=== PATIENT | female | born 1990 ===

== ENCOUNTER 2021-04-05 11:45 | Emergency (ER) | payer OTHER, SELFPAY ==
[2021-04-05 13:26] VITALS: BP 111/84; PULSE 84; RESP 18; TEMP 36.8; O2SAT 99; BMI 34.4
[2021-04-05 13:53] LABS: MANUAL DIFF FLAG NO
[2021-04-05 13:57] LABS: Basophils Percent Auto 0.6 % (0-2); Eosinophils Absolute Auto 0.1 X10*3/uL (0.0-0.4); Eosinophils Percent Auto 2.9 % (0-4); Hematocrit 42.2 % (37.0-47.0); Hemoglobin 13.9 g/dl (12.0-16.0); Imm Gran Abs Auto 0.01 X10*3/uL (0.00-0.03); Imm Gran Pct Auto 0.2 % (0.0-0.4); Lymphocytes Absolute Auto 1.9 X10*3/uL (1.2-4.9); Lymphocytes Percent Auto 40.2 % (20-40); Mean Corpuscular HGB Conc 32.9 g/dl (31.0-35.0); Mean Corpuscular Hemoglobin 29.5 pg (27.0-33.0); Mean Corpuscular Volume 89.6 fL (80.0-98.0); Mean Platelet Volume 10.3 fL (9.4-12.3); Monocytes Absolute Auto 0.4 X10*3/uL (0.1-1.2); Monocytes Percent Auto 8.9 % (2-11); Neutrophils Absolute Auto 2.3 x10*3/uL (2.0-8.3); Neutrophils Percent Auto 47.2 % (45-73); Platelet Count 309 X10*3/uL (160-400); Red Blood Count 4.71 X10*6/uL (4.20-5.50); Red Cell Distribution Width 11.8 % (11.0-16.0); White Blood Count 4.8 X10*3/uL (4.8-10.8)
[2021-04-05 14:16] LABS: Alanine Aminotransferase 17 U/L (0-31); Albumin Level 4.4 g/dL (3.5-5.0); Alkaline Phosphatase 107 U/L (39-117); Anion Gap 12 (12-20); Aspartate Amino Transferase 14 U/L (5-31); Bilirubin Direct 0.2 mg/dL (0.0-0.5); Bilirubin Total 0.3 mg/dL (0.0-1.0); Blood Urea Nitrogen 8 mg/dL (9-16); Calcium 9.8 mg/dL (8.4-10.2); Carbon Dioxide 26 mmol/L (22-29); Chloride 104 mmol/L (96-108); Creatinine Clr Calc Pharmacy 135.5; Estimated Glomerular Filt Rate > 60; Glucose Random 113 mg/dL (60-115); Lipase 51 U/L (8-78); Potassium 4.3 mmol/L (3.3-5.1); Sodium 138 mmol/L (135-145); Total Protein 7.9 g/dL (6.5-8.0)
[2021-04-05 17:02] LABS: Appearance Urine HAZY; Color Urine YELLOW; Glucose Urine UA NEG (NEG); Leukocyte Esterase Urine TRACE (NEG); Nitrite Urine NEG (NEG); UACC Culture Trigger YES; Urine Blood NEG (NEG); Urine Ketones NEG (NEG); Urine Protein NEG (NEG-TRACE)
[2021-04-05 19:04] LABS: Bacteria Urine TRACE /LPF; Mucus Urine TRACE /LPF; RBC Urine 0 /HPF (0); Squamous Epithelial Cell Urine 1+ /LPF
--- NOTE | 2021-04-05 20:20 | ED_ITS ---
HPI - GI Bleed General Chief complaint: GI Bleed Stated complaint: rectal bleed Time Seen by Provider: 04/05/21 20:10 History of Present Illness HPI Narrative: Patient is 30 years old presents today with having brown stool. Also having hemorrhoids. Noticed some blood in his stool. Presented to the emergency department. No fever no chills no cough no congestion no chest pain or diaphoresis. Patient is from home. No focal weakness. No diaphoresis. All system reviewed otherwise negative no history of GI bleed in the past. Positive history of hemorrhoids. Related Data Allergies Allergy/AdvReac Type Severity Reaction Status Date / Time No Known Allergies Allergy Verified 04/05/21 13:25 [No Known Allergies*] Review of Systems Review of Systems: Positive hemorrhoid positive brown stool with blood Yes all other systems are reviewed and are negative PMFSH Past Medical History Attestation statement: The following information was validated with the patient. Medical History Asthma Hemorrhoids Social History Social History Patient : No Physical Exam Vital Signs: Vital Signs: Last Vital Signs Temp 98.2 F 04/05/21 13:26 Pulse 84 04/05/21 13:26 Resp 18 04/05/21 13:26 BP 111/84 04/05/21 13:26 Pulse Ox 99 04/05/21 13:26 BMI result Body Mass Index 34.4 Appearance: Alert. Oriented X3. No acute distress. Eyes: Pupils equal, round and reactive to light. ENT: Pharynx normal. Neck: Normal inspection. Neck supple. No lymph nodes noted. No crepitus CVS: Normal heart rate and rhythm. Pulses normal. Normal S1 and S2 Respiratory: No respiratory distress. Breath sounds normal. No Wheezing. No rales Abdomen: Soft and nontender. No rigidity. No distention. good BS x4 rectal exam done with Keshav present. Positive hemorrhoids. the stools grossly brown. Skin: Skin warm and dry. Normal skin color. Normal skin turgor. Extremities: No lower extremity edema. Neurovascular intact to all extremities. No Lacerations. No Rash Neuro: Oriented X 3. No motor deficit. No sensory deficit. Moving all extermities. No slurred speech MDM - GI Bleed [facility] Narrative Medical decision making narrative: Patient well appearing no distress. Hemoglobin is 13.9. Likely hemorrhoidal bleed. Will discharge patient home. In stable condition. Lab Data Result diagrams: 04/05/21 13:50 04/05/21 13:50 Labs: Lab Results 04/05/21 04/05/21 04/05/21 Range/Units 13:50 13:50 16:35 WBC 4.8 (4.8-10.8) X10*3/uL RBC 4.71 (4.20-5.50) X10*6/uL Hgb 13.9 (12.0-16.0) g/dl Hct 42.2 (37.0-47.0) % MCV 89.6 (80.0-98.0) fL MCH 29.5 (27.0-33.0) pg MCHC 32.9 (31.0-35.0) g/dl RDW 11.8 (11.0-16.0) % Plt Count 309 (160-400) X10*3/uL MPV 10.3 (9.4-12.3) fL Immature Gran % (Auto) 0.2 (0.0-0.4) % Neut % (Auto) 47.2 (45-73) % Lymph % (Auto) 40.2 H (20-40) % Weber % (Auto) 8.9 (2-11) % Eos % (Auto) 2.9 (0-4) % Baso % (Auto) 0.6 (0-2) % Lymph # (Auto) 1.9 (1.2-4.9) X10*3/uL [place] # (Auto) 0.4 (0.1-1.2) X10*3/uL Eos # (Auto) 0.1 (0.0-0.4) X10*3/uL Baso # (Auto) 0.0 (0.0-0.2) X10*3/uL Abs Immat Gran (auto) 0.01 (0.00-0.03) X10*3/uL Absolute Neuts (auto) 2.3 (2.0-8.3) x10*3/uL Absolute Nucleated RBC 0.000 (0.0-0.012) X10*3/uL Nucleated RBC % (auto) 0.0 (0.0-0.2) /100WBC Sodium 138 (135-145) mmol/L Potassium 4.3 (3.3-5.1) mmol/L Chloride 104 (96-108) mmol/L Carbon Dioxide 26 (22-29) mmol/L Anion Gap 12 (12-20) BUN 8 L (9-16) mg/dL Creatinine 0.75 (0.5-1.4) mg/dL Estim Creat Clear Calc 135.5 Estimated GFR > 60 Random Glucose 113 (60-115) mg/dL Calcium 9.8 (8.4-10.2) mg/dL Total Bilirubin 0.3 (0.0-1.0) mg/dL Direct Bilirubin 0.2 (0.0-0.5) mg/dL AST 14 (5-31) U/L ALT 17 (0-31) U/L Alkaline Phosphatase 107 (39-117) U/L Total Protein 7.9 (6.5-8.0) g/dL Albumin 4.4 (3.5-5.0) g/dL Lipase 51 (8-78) U/L Urine Color YELLOW Urine Appearance HAZY Urine pH 6.0 (5.0-8.0) Ur Specific [place] 1.020 (1.005-1.025) Urine Protein NEG (NEG-TRACE) MG/DL Urine Glucose (UA) NEG (NEG) MG/DL Urine Ketones NEG (NEG) MG/DL Urine Blood NEG (NEG) Urine Nitrite NEG (NEG) Ur Leukocyte Esterase TRACE H (NEG) Urine RBC 0 (0) /HPF Urine WBC 1-4 (0-4) /HPF Ur Squamous Epith Cells 1+ /LPF Urine Bacteria TRACE /LPF Urine Mucus TRACE /LPF Discharge Plan Discharge Clinical Impression: Hemorrhoids Patient Disposition: Home, Self-Care Instructions: Hemorrhoids (ED) Referrals: Andres Andre MD [Physician] - 2 days
[2021-04-05 20:33] VITALS: BP 133/84; PULSE 105; RESP 16; O2SAT 98
== END 2021-04-05 20:38 | disposition home or self-care (01) ==
LOC: HO.ED 20:26
PROVIDERS: Emergency Provider Emergency Medicine Emergency Medical Services
DX: K64.9 Unspecified hemorrhoids (principal); J45.909 Unspecified asthma, uncomplicated
CPT/HCPCS: 36415; 80048; 80076; 81001; 81003; 83690; 85025; 87086; 99283; 99284

== ENCOUNTER 2022-06-07 08:30 | Emergency (ER) | payer OTHER, SELFPAY ==
[2022-06-07 08:39] VITALS: BP 117/91; PULSE 94; RESP 20; TEMP 36.3; O2SAT 98; BMI 35.9
[2022-06-07 09:08] LABS: COVID-19 Test Negative (Negative); IDNOW Serial# 6674DD1D
[2022-06-07 09:09] LABS: Strep A Nucleic Acid Negative (Negative)
[2022-06-07 09:18] LABS: IDNOW Serial# 08D9AD1C; Influenza A Negative (Negative); Influenza B2 Negative (Negative)
--- NOTE | 2022-06-07 09:57 | ED_ITS ---
HPI - URI/Sore Throat General Chief Complaint: Upper Respiratory Symptoms Stated Complaint: N/V/D/Sore throat Time Seen by Provider: 06/07/22 09:50 Source: patient Mode of arrival: ambulatory Limitations: no limitations History of Present Illness HPI Narrative: 31 yo female presenting with 4 days of sore throat, body aches, headaches, stuffy nose and not feeling well. She also reports feeling nauseated and vomited twice. She had a few episodes of nonbloody diarrhea yesterday as well. She reports her 2 young children had similar illness last week but got better after a couple days. She denies any shortness of breath, chest pain, abdominal pain. MD elicited complaint: cough, sore throat and nasal congestion Onset (ago): day(s) (4) Consistency: constant Severity: moderate Description of mucous: clear and watery Able to tolerate fluids by mouth: Yes Exacerbating factors: swallowing Relieving factors: nothing Context: sick contacts Associated symptoms: chills, myalgias, headache, rhinorrhea, nasal congestion, sore throat, cough, nausea, vomiting and diarrhea Treatments prior to arrival: none Related Data Previous Rx's Medication Instructions Recorded benzonatate 100 mg capsule 100 mg PO TID PRN cough #30 caps 06/07/22 fluticasone propionate 50 2 spray intranasal DAILY #16 grams 06/07/22 mcg/actuation nasal spray,suspension (24 Hour Allergy Relief) ondansetron 4 mg disintegrating 4 mg PO Q8H PRN nausea and 06/07/22 tablet vomiting #10 tabs Allergies Allergy/AdvReac Type Severity Reaction Status Date / Time No Known Allergies Allergy Verified 06/07/22 08:42 [No Known Allergies*] Review of Systems Review of Systems: Yes all other systems are reviewed and are negative [facility] Past Medical History Medical History Asthma Hemorrhoids Social History Social History Advance Directives: No Advance Directives Information Provided: No Physical Exam Vital Signs: Vital Signs: Last Vital Signs Temp 97.4 F 06/07/22 08:39 Pulse 94 06/07/22 08:39 Resp 20 06/07/22 08:39 BP 117/91 H 06/07/22 08:39 Pulse Ox 98 06/07/22 08:39 O2 Del Method 06/07/22 08:39 BMI result Body Mass Index 35.9 Appearance: Alert. Oriented X3. No acute distress. Eyes: Pupils equal, round and reactive to light. ENT: Pharynx normal. Normal tonsils and uvula. Hoarse voice. Normal TMs bilaterally. Neck: Normal inspection. Neck supple. No LAD CVS: Normal heart rate and rhythm. Pulses normal. Respiratory: No respiratory distress. Breath sounds normal. Abdomen: Soft and nontender. +BS x4 Skin: Skin warm and dry. Normal skin color. Normal skin turgor. No rashes. Extremities: No lower extremity edema. Neuro: Oriented X 3. Nonfocal, steady gait. Course Course Course Narrative: 31 yo female presenting with 4 days of URI symptoms along with nausea, vomiting and few episodes of diarrhea. Two young children with similar symptoms last week. Exam is benign. VSS. Abd is soft. Strep, COVID, Flu are all negative. Most likely viral illness. Discussed supportive care and return precautions. Stable for d/c home. Will send Rx for anti-tussive, anti-emetic and decongestant. Medical Decision Making Differential Diagnosis Differential Diagnoses: The differential diagnosis associated with the presentation includes acute viral syndrome, COVID, Flu, RSV, gastroenteritis, Strep throat, less likely sinus infection, appendicitis, cholecystitis, or intraabdominal infection Lab Data MDM Lab Attestation statement: I reviewed the patient's lab results. viral swabs and strep are negative Labs: Lab Results 06/07/22 06/07/22 06/07/22 Range/Units 08:44 08:44 08:44 COVID-19 (RHODA) Negative (Negative) COVID-19 Clin Com See Note Influenza Type A (AYLIN) Negative (Negative) Influenza Type B (AYLIN) Negative (Negative) Influenza A & B Note See Note S. pyogenes GrpA AYLIN Negative (Negative) External Record Review External record reviewed: Outpatient record and Prior outpatient labs Tests considered The following testing was considered but not selected: labs considered but not performed - no signs of dehydration or acute bacterial infection Prescription Management I considered prescription management with: Other (anti-tussive, anti-emetic) Critical Care Time Critical Care Time Critical Care Time: No Discharge Plan Discharge Clinical Impression: Viral infection Patient Disposition: Home, Self-Care Instructions: Viral Syndrome (ED) Additional Instructions: You tested negative for Strep throat, COVID, and Flu. Your symptoms are most likely due to another viral illness. Treatment is rest and supportive care - take over the counter cold/flu medications as needed for your symptoms Rest and drink plenty of fluids Take the prescribed medications as directed Follow up with a primary care doctor as needed. Prescriptions: New ondansetron 4 mg tablet,disintegrating 4 mg PO Q8H PRN (Reason: nausea and vomiting) Qty: 10 0RF fluticasone propionate [24 Hour Allergy Relief] 50 mcg/actuation spray,meredith pension 2 spray intranasal DAILY Qty: 16 0RF Rx Instructions: administer into each nostril benzonatate 100 mg capsule 100 mg PO TID PRN (Reason: cough) Qty: 30 0RF
== END 2022-06-07 10:30 | disposition home or self-care (01) ==
PROVIDERS: Emergency Provider Emergency Medicine
DX: M79.10 Myalgia, unspecified site (principal); R51.9 Headache, unspecified; R05.9 Cough, unspecified; Z20.822 Contact with and (suspected) exposure to COVID-19; Z20.828 Contact with and (suspected) exposure to other viral communicable diseases; Z79.899 Other long term (current) drug therapy
CPT/HCPCS: 87502; 87635; 87651; 99282; 99283

== ENCOUNTER 2022-12-30 19:27 | Emergency (ER) | payer OTHER, SELFPAY ==
--- NOTE | ~2022-12-30 | CT_ITS ---
EXAMINATION: CT ANGIOGRAM OF THE CHEST WITH AND WITHOUT CONTRAST (CT PULMONARY ANGIOGRAM FOR PE) CLINICAL INFORMATION: Reason for Exam chest pain elevated ddimer COMPARISON: None available. TECHNIQUE: Prior to contrast administration, noncontrast localization images were obtained. Subsequently, multidetector volumetric imaging was performed from the thoracic inlet to below the diaphragms following the administration of 70 mL Omnipaque 350 intravenous contrast. No contrast reaction reported Sagittal, coronal, and MIP oblique sagittal reformatted images were obtained on the CT workstation, uploaded to PACS, and reviewed. This CT examination was performed using dose optimization techniques as appropriate, variously including the following: *Automated exposure control *Adjustment of mA and/or kV according to patient size (this includes techniques or standardized protocols for targeted exams where dose is matched to indication/reason for exam; i.e. extremities or head) *Use of iterative reconstruction technique Total exam dose-length product 307 mGy-cm FINDINGS: QUALITY OF STUDY/CONTRAST BOLUS: Limited due to a late imaging of the contrast bolus. Systemic arterial contrast is noted throughout the chest and there is diminished pulmonary arterial contrast material, limiting assessment of the lobar/proximal segmental levels. PULMONARY ARTERIES: No lobar or appreciable proximal segmental pulmonary emboli. Sensitivity for smaller distal pulmonary emboli is limited. THORACIC AORTA: No aneurysm. LUNG: No focal consolidation, nodules or masses. Mild dependent atelectasis. PLEURA: No pleural effusion or pneumothorax. MEDIASTINUM: Normal heart size. No pericardial effusion. No hilar or mediastinal lymphadenopathy. No evidence of septal bowing or right heart strain. CORONARY ARTERY CALCIFICATION: None visualized on this study. CHEST WALL/AXILLA: No axillary or internal mammary lymphadenopathy. OSSEOUS STRUCTURES: No acute or suspicious osseous abnormality. UPPER ABDOMEN: Unremarkable. No reflux of contrast into the hepatic veins to suggest elevated right heart pressures. CT/CT angio chest PE protocol IMPRESSION: No acute pulmonary findings. No lobar or proximal segmental pulmonary emboli are identified. Sensitivity for smaller distal pulmonary emboli is limited. VTE: indeterminate.
--- NOTE | ~2022-12-30 | XR_ITS ---
EXAMINATION: XR CHEST CLINICAL INFORMATION: Pain COMPARISON: None available. TECHNIQUE: Frontal view of the chest was obtained. FINDINGS: The cardiomediastinal silhouette is normal. There is no focal lung consolidation or pleural effusion. The bony structures and soft tissues are unremarkable. XR/XR chest 1V IMPRESSION: No active cardiopulmonary disease.
--- NOTE | ~2022-12-30 | CT_ITS ---
EXAMINATION: CT head/brain wo IV con CLINICAL INFORMATION: Reason for Exam headaches COMPARISON: None. TECHNIQUE: Contiguous axial imaging was performed from the skull base to vertex without intravenous contrast. Sagittal and coronal reformatted images were obtained. This CT examination was performed using dose optimization techniques as appropriate, variously including the following: * Automated exposure control * Adjustment of mA and/or kV according to patient size (this includes techniques or standardized protocols for targeted exams where dose is matched to indication/reason for exam; i.e. extremities or head) Use of iterative reconstruction technique DLP: 688.06 mGy-cm FINDINGS: Motion degraded examination with evaluation of the intracranial contents most limited along the skull base No acute osseous or soft tissue abnormality. The mastoid air cells and visualized portions of the paranasal sinuses are well aerated. There is some hyperdensity of the intracranial vasculature related to recent IV contrast administration which limits sensitivity for subarachnoid hemorrhage. There is no evidence of acute intracranial hemorrhage or territorial infarction. No abnormal mass effect or midline shift is seen. Mancuso to white matter differentiation is well preserved. No extra-axial fluid collections are identified. No hydrocephalus. No significant volume loss. There is no abnormal attenuation within the brain parenchyma. CT/CT head/brain wo IV con IMPRESSION: Within the limitations of motion artifact, no evidence of acute intracranial abnormality including hemorrhage, mass effect, hydrocephalus, or acute territorial edematous infarction.
--- NOTE | 2022-12-30 19:29 | ECG_ITS ---
Test Reason : CX PAIN Blood Pressure : / mmHG Vent. Rate : 126 BPM Atrial Rate : 126 BPM P-R Int : 126 ms QRS Dur : 078 ms QT Int : 310 ms P-R-T Axes : 065 036 035 degrees QTc Int : 448 ms Sinus tachycardia Otherwise normal ECG No previous ECGs available Referred By: Dex Sauer Electronically Signed By:KIRK MUELLER
[2022-12-30 19:43] VITALS: BP 138/84; PULSE 128; RESP 18; TEMP 38.5; O2SAT 95; BMI 36.0
--- NOTE | 2022-12-30 19:48 | ED.CHESTPAIN ---
HPI - Chest Pain General Chief Complaint: Chest Pain Stated Complaint: chest pain Time Seen by Provider: 12/30/22 22:41 Source: patient Mode of arrival: ambulatory Limitations: no limitations History of Present Illness HPI narrative: 32 yo female no sig PMH uses IUD went [facility]. Her had a mild illness the next day with diarrhea but resolved. She developed body aches, fevers, L sided chest pain and diarrhea yesterday. She denies travel, known sick contacts, this has never happened before. MD complaint: chest pain Onset (ago): day(s) (1) Timing of current episode: constant Prior episodes: No Onset: during rest Pain location: left chest Pain radiation: none Severity: moderate Quality: sharp Relieving factors: nothing Exacerbating factors: inspiration Context: recent illness Associated symptoms: nausea, dyspnea, fever and cough Treatment prior to arrival: none Related Data Previous Rx's Medication Instructions Recorded benzonatate 100 mg capsule 100 mg PO TID PRN cough #30 caps 06/07/22 fluticasone propionate 50 2 spray intranasal DAILY #16 grams 06/07/22 mcg/actuation nasal spray,suspension (24 Hour Allergy Relief) ondansetron 4 mg disintegrating 4 mg PO Q8H PRN nausea and 06/07/22 tablet vomiting #10 tabs ondansetron 4 mg disintegrating 4 mg PO Q8H PRN nausea and 12/31/22 tablet vomiting #20 tabs Allergies Allergy/AdvReac Type Severity Reaction Status Date / Time No Known Allergies Allergy Verified 06/07/22 08:42 [No Known Allergies*] Review of Systems Review of Systems: Constitutional : No Weight loss, pos Fever, pos Chills ENT/Mouth : No sore throat, No Rhinorrhea Eyes: No Eye Pain, No Swelling Cardiovascular : pos Chest Pain, noSOB, no Dyspnea on Exertion, No Orthopnea, No Edema, No Palpitations Respiratory : No Cough, No Sputum Gastrointestinal : pos Nausea, No Vomiting, pos Diarrhea, No abdominal Pain, No Hematochezia, No Melena Genitourinary : No Dysuria, No Urinary Frequency Musculoskeletal : No joint pain, pos Myalgias, No Joint Swelling Skin : No Skin Lesions, No rash Neuro : No Weakness, No Numbness, No Dizziness, No Headache Psych : No Anxiety/Panic, No Depression All other systems reviewed and are negative [facility] Past Medical History Attestation statement: The following information was validated with the patient. Medical History Hemorrhoids Asthma Social History Social History Alcohol intake: current Alcohol intake frequency: holidays/special occasions only Smoked in Last 30 Days: No Use of substances other than those prescribed or required for medical reasons: No Advance Directives: No Advance Directives Information Provided: No Physical Exam Vital Signs: Vital Signs: Last Vital Signs Temp 98.4 F 12/31/22 00:42 Pulse 91 12/31/22 00:42 Resp 16 12/31/22 00:42 BP 112/75 12/31/22 00:42 Pulse Ox 95 12/31/22 00:42 O2 Del Method Room Air 12/31/22 00:42 BMI result Body Mass Index 36.0 Appearance: Alert. Oriented X3. No acute distress. Eyes: Pupils equal, round and reactive to light. ENT: Pharynx normal. Neck: Normal inspection. Neck supple. CVS: tachycardic heart rate and rhythm. Pulses normal. Respiratory: No respiratory distress. Breath sounds normal. Abdomen: Soft and nontender. Skin: Skin warm and dry. Normal skin color. Normal skin turgor. Extremities: No lower extremity edema. No calf ttp Neuro: Oriented X 3. No motor deficit. No sensory deficit. Course Course Course Narrative: RME- 32-year-old female presents for evaluation of headache and chest pain. She is found to have a fever. Will start with a COVID swab. EKG was nonischemic. Consider further testing if COVID negative. She was medicated with ibuprofen, Reevaluation(s) Reevaluation #1: VS improved not toxic states her L hand feels weird but she has no neck pain other than trapezius pain, no mosquito or tick bites, her NIH is 0 at this time no stroke deficits i suspect her IV is making it hard for her hand to work. stroke seems unlikely. Reevaluation #2: given numbness and weird complaints though NIH 0 I will monitor her for a little bit and obtain CT head to rule out any pathology or frontal tumor signed out to Dr. Mena Medications Administered Discontinued Medications Generic Name Dose Route Start Last Admin Trade Name Freq PRN Reason Stop Dose Admin Acetaminophen 975 mg 12/30/22 22:46 12/30/22 23:08 Acetaminophen 325 Mg Tablet PO 12/30/22 22:47 975 mg ONCE ONE Administration Sodium Chloride 1,000 mls @ 999 mls/hr 12/30/22 23:00 12/30/22 23:17 Ns IV 12/31/22 00:00 999 mls/hr .Q1H1M RO Administration Ibuprofen 800 mg 12/30/22 19:47 12/30/22 20:35 Ibuprofen 800 Mg Tablet PO 12/30/22 19:48 800 mg ONCE ONE Administration Iohexol 70 ml 12/31/22 00:22 12/31/22 00:23 Iohexol 350 Mg/Ml 100 Ml Infus..Btl IV 12/31/22 00:23 70 ml ONCE ONE Administration Ondansetron HCl 4 mg 12/30/22 22:58 12/30/22 23:17 Ondansetron Hcl 4 Mg/2 Ml Vial IVPUSH 12/30/22 22:59 4 mg ONCE ONE Administration Medical Decision Making Medical Decision Making MDM Narrative: 32 yo female with hx of asthma here with fevers, chest pain, diarrhea, body aches after this weekend her was sick with diarrhea as well on Monday after attending [facility] patient's symptoms at this time seem more viral in nature vs VTE - I have ordered viral panel and CTA:PE. Holding antibiotics at this time suspect fever and tachycardia due to viral infection and not bacterial infection so she does not need antibiotics right now. IVF, zofran and tylenol/motrin. She has no abdominal ttp to suggest cholecystitis/appendicitis. She has no urinary symptoms. No rash and no tick bites Differential Diagnosis Differential Diagnoses: The differential diagnosis associated with the presentation includes atypical chest pain, viral pneumonia, PE Admission/Observation Consideration of admission/observation: Escalation of care including admission/observation considered Lab Data MDM Lab Attestation statement: I reviewed the patient's lab results. trop flat mild bump in LFTs no WBC count neg lactic acid 12/30/22 21:13 12/30/22 21:13 Labs: Lab Results 12/30/22 12/30/22 12/30/22 Range/Units 19:50 21:13 22:54 WBC 7.2 (4.8-10.8) X10*3/uL RBC 4.85 (4.20-5.50) X10*6/uL Hgb 14.3 (12.0-16.0) g/dl Hct 42.0 (37.0-47.0) % MCV 86.6 (80.0-98.0) fL MCH 29.5 (27.0-33.0) pg MCHC 34.0 (31.0-35.0) g/dl RDW 11.7 (11.0-16.0) % Plt Count 264 (160-400) X10*3/uL MPV 10.1 (9.4-12.3) fL Immature Gran % (Auto) 0.4 (0.0-0.4) % Neut % (Auto) 81.1 H (45-73) % Lymph % (Auto) 11.1 L (20-40) % [place] % (Auto) 6.5 (2-11) % Eos % (Auto) 0.6 (0-4) % Baso % (Auto) 0.3 (0-2) % Lymph # (Auto) 0.8 L (1.2-4.9) X10*3/uL [place] # (Auto) 0.5 (0.1-1.2) X10*3/uL Eos # (Auto) 0.0 (0.0-0.4) X10*3/uL Baso # (Auto) 0.0 (0.0-0.2) X10*3/uL Abs Immat Gran (auto) 0.03 (0.00-0.03) X10*3/uL Absolute Neuts (auto) 5.8 (2.0-8.3) x10*3/uL Absolute Nucleated RBC 0.000 (0.0-0.012) X10*3/uL Nucleated RBC % (auto) 0.0 (0.0-0.2) /100WBC D-Dimer High Sensitivty NG/ML Sodium 134 L (135-145) mmol/L Potassium 3.8 (3.3-5.1) mmol/L Chloride 100 (96-108) mmol/L Carbon Dioxide 25 (22-29) mmol/L Anion Gap 13 (12-20) BUN 7 L (9-16) mg/dL Creatinine 0.86 (0.5-1.4) mg/dL Estim Creat Clear Calc 118.7 Estimated GFR > 60 Random Glucose 124 H (60-115) mg/dL Lactic Acid 0.9 (0.5-2.0) mmol/L Calcium 9.5 (8.4-10.2) mg/dL Total Bilirubin 0.6 (0.0-1.0) mg/dL AST 59 H (5-31) U/L ALT 51 H (0-31) U/L Alkaline Phosphatase 102 (39-117) U/L Troponin I High Sens < 2.7 (<3.5-17.0) ng/L Total Protein 8.4 H (6.5-8.0) g/dL Albumin 4.4 (3.5-5.0) g/dL Lipase 27 (8-78) U/L Urine Color Yellow Urine Appearance Clear Urine pH 6.5 (5.0-9.0) Ur Specific [place] 1.015 (1.005-1.025) Urine Protein Negative (Neg-Trace) mg/dL Urine Glucose (UA) Negative (Negative) mg/dL Urine Ketones Negative (Negative) mg/dL Urine Blood Negative (Negative) Urine Nitrite Negative (Negative) Ur Leukocyte Esterase Trace H (Negative) Urine RBC 0-2 (0-2) /HPF Urine WBC 0-5 (0-5) /HPF Ur Squamous Epith Cells 0-2 (0-2) /HPF Urine Bacteria None Seen (None Seen) Hyaline Casts 0-2 (0-2) /LPF COVID-19 (RHODA) Negative (Negative) COVID-19 Clin Com See Note Influenza Type A (PCR) (Negative) Influenza Type B (PCR) (Negative) RSV RNA Qual (PCR) (Negative) SARS-CoV-2 RNA (RT-PCR) (Negative) 12/30/22 12/30/22 Range/Units 22:55 23:11 WBC (4.8-10.8) X10*3/uL RBC (4.20-5.50) X10*6/uL Hgb (12.0-16.0) g/dl Hct (37.0-47.0) % MCV (80.0-98.0) fL MCH (27.0-33.0) pg MCHC (31.0-35.0) g/dl RDW (11.0-16.0) % Plt Count (160-400) X10*3/uL MPV (9.4-12.3) fL Immature Gran % (Auto) (0.0-0.4) % Neut % (Auto) (45-73) % Lymph % (Auto) (20-40) % [place] % (Auto) (2-11) % Eos % (Auto) (0-4) % Baso % (Auto) (0-2) % Lymph # (Auto) (1.2-4.9) X10*3/uL [place] # (Auto) (0.1-1.2) X10*3/uL Eos # (Auto) (0.0-0.4) X10*3/uL Baso # (Auto) (0.0-0.2) X10*3/uL Abs Immat Gran (auto) (0.00-0.03) X10*3/uL Absolute Neuts (auto) (2.0-8.3) x10*3/uL Absolute Nucleated RBC (0.0-0.012) X10*3/uL Nucleated RBC % (auto) (0.0-0.2) /100WBC D-Dimer High Sensitivty 486 NG/ML Sodium (135-145) mmol/L Potassium (3.3-5.1) mmol/L Chloride (96-108) mmol/L Carbon Dioxide (22-29) mmol/L Anion Gap (12-20) BUN (9-16) mg/dL Creatinine (0.5-1.4) mg/dL Estim Creat Clear Calc Estimated GFR Random Glucose (60-115) mg/dL Lactic Acid (0.5-2.0) mmol/L Calcium (8.4-10.2) mg/dL Total Bilirubin (0.0-1.0) mg/dL AST (5-31) U/L ALT (0-31) U/L Alkaline Phosphatase (39-117) U/L Troponin I High Sens (<3.5-17.0) ng/L Total Protein (6.5-8.0) g/dL Albumin (3.5-5.0) g/dL Lipase (8-78) U/L Urine Color Urine Appearance Urine pH (5.0-9.0) Ur Specific [place] (1.005-1.025) Urine Protein (Neg-Trace) mg/dL Urine Glucose (UA) (Negative) mg/dL Urine Ketones (Negative) mg/dL Urine Blood (Negative) Urine Nitrite (Negative) Ur Leukocyte Esterase (Negative) Urine RBC (0-2) /HPF Urine WBC (0-5) /HPF Ur Squamous Epith Cells (0-2) /HPF Urine Bacteria (None Seen) Hyaline Casts (0-2) /LPF COVID-19 (RHODA) (Negative) COVID-19 Clin Com Influenza Type A (PCR) NEGATIVE (Negative) Influenza Type B (PCR) NEGATIVE (Negative) RSV RNA Qual (PCR) NEGATIVE (Negative) SARS-CoV-2 RNA (RT-PCR) NEGATIVE (Negative) Independent Interpretation I performed an independent interpretation of an: EKG, Plain X-Ray and CT Scan (CTA negative) Interpretation: Rate: 126 Rhythm: sinus tachycardia Verdi: normal Normal P waves. Normal CHEPE. Normal QRS complex. ST T wave : nonspecific ST T wave changes inf leads, no ODESSA qTC: normal prior studies: no acute ischemia The study has been interpreted contemporaneously by me. . Radiology Impression Discussion of test interpretation with radiology: I have reviewed the radiologist's reading. Independent Historian Clinical information obtained from an independent historian. History obtained from or confirmed by: Spouse Discharge Plan Discharge Clinical Impression: Acute viral syndrome Patient Disposition: Still a Patient Instructions: Viral Syndrome (ED) Additional Instructions: mild bump in liver tests can repeat with your doctor on Monday. no blood clots, normal tests for heart. negative flu covid rsv please monitor your symptoms return if you feel worse at any time. take tylenol or motrin for fevers, stay hydrated. eat well. return for confusion, vomiting, fevers, severe pain, headache, trouble breathing or any other concerns. Prescriptions: New ondansetron 4 mg tablet,disintegrating 4 mg PO Q8H PRN (Reason: nausea and vomiting) Qty: 20 0RF No Action ondansetron 4 mg tablet,disintegrating 4 mg PO Q8H PRN (Reason: nausea and vomiting) Qty: 10 0RF fluticasone propionate [24 Hour Allergy Relief] 50 mcg/actuation spray,suspension 2 spray intranasal DAILY Qty: 16 0RF Rx Instructions: administer into each nostril benzonatate 100 mg capsule 100 mg PO TID PRN (Reason: cough) Qty: 30 0RF Stand Alone Forms: Work/School Release
[2022-12-30 20:11] LABS: COVID-19 Test Negative (Negative); IDNOW Serial# BCCEAD1C
[2022-12-30] MEDS: Ibuprofen 800 MG TABLET PO (20:35)
[2022-12-30 21:17] LABS: MANUAL DIFF FLAG NO
[2022-12-30 21:19] LABS: Basophils Percent Auto 0.3 % (0-2); Eosinophils Percent Auto 0.6 % (0-4); Hemoglobin 14.3 g/dl (12.0-16.0); Imm Gran Abs Auto 0.03 X10*3/uL (0.00-0.03); Imm Gran Pct Auto 0.4 % (0.0-0.4); Lymphocytes Absolute Auto 0.8 X10*3/uL (1.2-4.9); Lymphocytes Percent Auto 11.1 % (20-40); Mean Corpuscular Hemoglobin 29.5 pg (27.0-33.0); Mean Corpuscular Volume 86.6 fL (80.0-98.0); Mean Platelet Volume 10.1 fL (9.4-12.3); Monocytes Absolute Auto 0.5 X10*3/uL (0.1-1.2); Monocytes Percent Auto 6.5 % (2-11); Neutrophils Absolute Auto 5.8 x10*3/uL (2.0-8.3); Neutrophils Percent Auto 81.1 % (45-73); Platelet Count 264 X10*3/uL (160-400); Red Blood Count 4.85 X10*6/uL (4.20-5.50); Red Cell Distribution Width 11.7 % (11.0-16.0); White Blood Count 7.2 X10*3/uL (4.8-10.8)
[2022-12-30 21:20] LABS: Appearance Urine Clear; Color Urine Yellow; Glucose Urine UA Negative (Negative); Leukocyte Esterase Urine Trace (Negative); Nitrite Urine Negative (Negative); PH 6.5 (5.0-9.0); Specific Gravity - Urine 1.015 (1.005-1.025); UMIC TRIGGER UACC YES; Urine Blood Negative (Negative); Urine Ketones Negative (Negative); Urine Protein Negative (Neg-Trace)
[2022-12-30 21:22] LABS: Bacteria Urine None Seen (None Seen); Hyaline Casts Urine 0-2 /LPF (0-2); RBC Urine 0-2 /HPF (0-2); Squamous Epithelial Cell Urine 0-2 /HPF (0-2); WBC Urine 0-5 /HPF (0-5)
[2022-12-30 21:33] LABS: Alanine Aminotransferase 51 U/L (0-31); Albumin Level 4.4 g/dL (3.5-5.0); Alkaline Phosphatase 102 U/L (39-117); Anion Gap 13 (12-20); Aspartate Amino Transferase 59 U/L (5-31); Bilirubin Total 0.6 mg/dL (0.0-1.0); Blood Urea Nitrogen 7 mg/dL (9-16); Calcium 9.5 mg/dL (8.4-10.2); Carbon Dioxide 25 mmol/L (22-29); Chloride 100 mmol/L (96-108); Creatinine Clr Calc Pharmacy 118.7; Estimated Glomerular Filt Rate > 60; Glucose Random 124 mg/dL (60-115); Lipase 27 U/L (8-78); Potassium 3.8 mmol/L (3.3-5.1); Sodium 134 mmol/L (135-145); Total Protein 8.4 g/dL (6.5-8.0)
[2022-12-30 22:23] VITALS: BP 124/75; PULSE 111; RESP 18; TEMP 38.4; O2SAT 98
[2022-12-30 22:56] VITALS: BP 114/75; PULSE 102; RESP 15; TEMP 37; O2SAT 98
--- NOTE | 2022-12-30 22:57 | MHC.EDTECH ---
THIS PCT JUST ASSUMED CARE OF PT ,VITALS SIGN TAKEN ,BLOOD DRAWN 1 ST SET BLOOD CULTURE AND LACTIC ACID DRAWN AND SENT TO LAB .
[2022-12-30] MEDS: Acetaminophen 325 MG TABLET 975 MG PO (23:08)
[2022-12-30 23:13] LABS: Lactic Acid 0.9 mmol/L (0.5-2.0)
[2022-12-30 23:14] LABS: Troponin-I High Sensitivity < 2.7 ng/L (<3.5-17.0)
[2022-12-30 23:14] LABS: D Dimer High Sensitivity 486 NG/ML
[2022-12-30] MEDS: ondansetron HCL 4 MG/2 ML VIAL IVPUSH (23:17)
[2022-12-30] MEDS: 0.9 % Sodium Chloride 1,000 ML 999 ML IV (23:17)
[2022-12-31] MEDS: iohexoL 350 MG/ML 100 ML INFUS..BTL 70 ML IV (00:23)
[2022-12-31 00:26] LABS: Influenza A PCR NEGATIVE (Negative); Influenza B PCR NEGATIVE (Negative); Resp Syncy Virus RNA Qual PCR NEGATIVE (Negative); SARS COV2 PCR INHOUSE NEGATIVE (Negative)
[2022-12-31 00:42] VITALS: BP 112/75; PULSE 91; RESP 16; TEMP 36.9; O2SAT 95
--- NOTE | 2022-12-31 01:18 | PC.NURSE ---
this r n assumed care of pt @ 2300. 20g iv placed in L hand. due to CTA ordered additional iv placed in R FA by this rn pt tolerated well
[2022-12-31 01:28] VITALS: BP 106/68; PULSE 76; RESP 18
[2022-12-31 02:23] VITALS: BP 106/68; PULSE 76; RESP 18; TEMP 36.6; O2SAT 97
[2022-12-31] MEDS: Magnesium Hydrox/Alum Hydrox 30 ML ORAL.SUSP PO (02:41)
[2022-12-31] MEDS: Omeprazole 40 MG CAPSULE.DR PO (02:41)
--- NOTE | 2022-12-31 02:45 | PC.NURSE ---
pt medicated according to jun. pt ambulatory to restroom
--- NOTE | 2022-12-31 03:01 | PC.NURSE ---
bilateral iv removed at discharge. pt calm and cooperative. pt ambulatory at discharge. pt provided with discharge packet and work note. pt verbalized understanding of discharge plan
== END 2022-12-31 03:03 | disposition home or self-care (01) ==
PROVIDERS: Emergency Medicine; Physician Assistant; Emergency Provider Internal Medicine
DX: B34.9 Viral infection, unspecified (principal); R07.9 Chest pain, unspecified; R50.9 Fever, unspecified; R05.9 Cough, unspecified; Z20.822 Contact with and (suspected) exposure to COVID-19; Z20.828 Contact with and (suspected) exposure to other viral communicable diseases
CPT/HCPCS: 0241U; 36415; 70450; 71045; 71275; 80053; 81001; 83605; 83690; 84484; 85025; 85379; 87040; 87635; 93005; 96361; 96374; 99284; 99285; J2405; Q9967

== ENCOUNTER 2023-01-19 09:39 | Outpatient (AMB) | payer OTHER, SELFPAY ==
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
[2023-01-19 09:53] VITALS: BP 118/74; PULSE 76; RESP 12; O2SAT 97; BMI 37.3
== END 2023-01-19 10:35 | disposition home or self-care (01) ==
PROVIDERS: Visit Provider Nurse Practitioner Family
DX: Z00.00 Encounter for general adult medical examination without abnormal findings (principal); L65.9 Nonscarring hair loss, unspecified; F41.9 Anxiety disorder, unspecified; F43.10 Post-traumatic stress disorder, unspecified; F90.9 Attention-deficit hyperactivity disorder, unspecified type; J45.909 Unspecified asthma, uncomplicated
CPT/HCPCS: 99385

== ENCOUNTER 2023-11-17 13:53 | Outpatient (AMB) | payer OTHER, SELFPAY ==
--- NOTE | 2023-11-17 14:01 | MHC.OFFWIV ---
Intake Vital Signs 11/17/23 14:02 Height 5 ft 7 in Weight 238 lb BMI 37.3 BP 114/80 Blood Pressure Location Lt brachial Position Sitting Pulse 84 Pulse Source Pulse Oximeter Temp 98.4 F Temp Source Oral Pulse Oximetry (%) 98 Oxygen Delivery Method Room Air Intake Visit Reasons: Headache and bumps on head Intake Note: pt c/o headache and bumps on head. Bothered by light and tones Patient Tobacco Use Status: Never used Tobacco Allergies seafood Allergy (Intermediate, Verified 11/17/23 14:02) Hives Do you need a note to return to daycare/school/sports/work: No HPI Headache and bumps on head HPI Details This note is constructed using voice recognition software. While every effort has been made to ensure accuracy, joint maker machine errors may have been included. The patient is a 33 year old female who presents to the clinic today with right-sided headache for the past 2 weeks intermittently. She is concerned because she could feel bumps on the right side on the posterior scalp region, pointing to the occipital. She has tried Tylenol with limited effect. She noted when she went to the movies last night that the sound was much too loud and that seemed to bother her as well as the lights. She has had some ongoing photophobia since onset. She denies nausea and vomiting, fever, chills, head injury. She has also had tearing in her eye on the right intermittently since onset of symptoms. [facility] Medical History (System 02/13/23 @ 14:11 by Dasha Erickson) PTSD (post-traumatic stress disorder) ADHD Anxiety Hemorrhoids Asthma Surgical History (System 02/13/23 @ 14:11 by Dasha Erickson) No pertinent past surgical history Family History (System 02/13/23 @ 14:11 by Dasha Erickson) Mother Bipolar 1 disorder Depression Diabetes HTN (hypertension) Hypercholesteremia Father No problems noted. 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 Current occupational exposures/hazards: No Cognitive needs: Yes Hearing needs: No Vision needs: No Review of Systems Const All systems reviewed & are unremarkable except as noted in HPI and below Physical Exam Vital Signs: Last Vital Signs Temp 98.4 F 11/17/23 14:02 Pulse 84 11/17/23 14:02 BP 114/80 11/17/23 14:02 Pulse Ox 98 11/17/23 14:02 Oxygen Delivery Method Room Air 11/17/23 14:02 BMI result Body Mass Index 37.3 Const General: cooperative, healthy appearing, comfortable, no acute distress and alert Orientation/consciousness: patient oriented x3 Limitations: no limitations HEENT Head: Yes normal to inspection, Yes normocephalic and Yes scalp tenderness (Over right occiptal) Ears: hearing grossly normal bilaterally General nose exam: Normal external nose present Face and sinus: Yes normal facial exam and Yes sinuses nontender Mouth: Normal oral and palatal mucosa present and tongue normal Teeth and gingiva: dentition normal Throat: Yes posterior oropharynx normal Eyes General: appearance normal, both eyes and all related structures Neck Neck: Yes normal visual inspection, Yes full ROM and Yes no lymphadenopathy Resp Effort & Inspection: normal respiratory effort and able to speak in complete sentences Auscultation: clear to auscultation bilaterally Cardio Jugular venous distension: no JVD Palpation: normal PMI Rate: regular rate Heart sounds: S1 normal heart sound present, S2 normal heart sound present, no click, no gallops, no murmurs and no rubs Skin General skin exam: no rashes or lesions noted, elasticity normal and turgor normal Neuro General: patient oriented x3 Cranial nerves: Yes CN's II-XII intact bilaterally Psych Appearance: grossly normal Mental Status: mental status grossly normal Speech and movement: Normal speech and movement present Affect: normal affect Assessment & Plan Assessment & Plan (1) Migraine headache: Code(s): G43.909 - Migraine, unspecified, not intractable, without status migrainosus Qualifiers: Migraine type: unspecified Status migrainosus presence: with status migrainosus Intractability: not intractable Qualified Code(s): G43.901 - Migraine, unspecified, not intractable, with status migrainosus Plan: Given unilateral findings photo and phonophobia, as well as symptoms lasting greater than 4 hours likely consistent with migraine. Absence of red flag symptoms such as diastolic blood pressure greater than 100, family history of subarachnoid hemorrhage, symptom onset at age greater than 50, or worst headache of her life, indicating no need for imaging at this time. Advised patient to continue to monitor for any repeat events, and keep headache journal should she have any repeat events following up with her primary care. The steroid burst provided for symptomatic relief. Plan See above for full details and plan. Medications: New prednisone 40 mg (2 x 20 mg) PO DAILY 3 days 6 tabs 0RF Coding Level of Care Code Est Pt Level 4 (33418) Diagnoses Migraine with status migrainosus, not intractable, unspecified migraine type G43.901 Migraine type: unspecified Status migrainosus presence: with status migrainosus Intractability: not intractable
[2023-11-17 14:02] VITALS: BP 114/80; PULSE 84; TEMP 36.9; O2SAT 98; BMI 37.3
== END 2023-11-17 14:34 | disposition home or self-care (01) ==
PROVIDERS: Visit Provider Registered Nurse
DX: G43.901 Migraine, unspecified, not intractable, with status migrainosus (principal)
CPT/HCPCS: 99214

== ENCOUNTER 2024-01-18 08:20 | Outpatient (REF) | payer OTHER, SELFPAY ==
[2024-01-18 08:39] LABS: MANUAL DIFF FLAG NO
[2024-01-18 09:12] LABS: Basophils Absolute Auto 0.1 X10*3/uL (0.0-0.2); Basophils Percent Auto 1.2 % (0-2); Eosinophils Absolute Auto 0.5 X10*3/uL (0.0-0.4); Eosinophils Percent Auto 10.8 % (0-4); Hematocrit 39.5 % (37.0-47.0); Hemoglobin 13.3 g/dl (12.0-16.0); Imm Gran Abs Auto 0.01 X10*3/uL (0.00-0.03); Imm Gran Pct Auto 0.2 % (0.0-0.4); Lymphocytes Absolute Auto 2.2 X10*3/uL (1.2-4.9); Lymphocytes Percent Auto 44.4 % (20-40); Mean Corpuscular HGB Conc 33.7 g/dl (31.0-35.0); Mean Corpuscular Hemoglobin 30.2 pg (27.0-33.0); Mean Corpuscular Volume 89.6 fL (80.0-98.0); Monocytes Absolute Auto 0.4 X10*3/uL (0.1-1.2); Monocytes Percent Auto 8.8 % (2-11); Neutrophils Absolute Auto 1.7 x10*3/uL (2.0-8.3); Neutrophils Percent Auto 34.6 % (45-73); Platelet Count 318 X10*3/uL (160-400); Red Blood Count 4.41 X10*6/uL (4.20-5.50); Red Cell Distribution Width 11.7 % (11.0-16.0)
[2024-01-18 09:44] LABS: Alanine Aminotransferase 17 U/L (0-31); Albumin Level 4.5 g/dL (3.5-5.0); Alkaline Phosphatase 94 U/L (39-117); Anion Gap 11 (12-20); Aspartate Amino Transferase 14 U/L (5-31); Bilirubin Total 0.6 mg/dL (0.0-1.0); Blood Urea Nitrogen 7 mg/dL (9-16); Calcium 9.6 mg/dL (8.4-10.2); Carbon Dioxide 27 mmol/L (22-29); Chloride 104 mmol/L (96-108); Cholesterol 183 mg/dL (<200); Estimated Glomerular Filt Rate > 60; Glucose Fasting 104 mg/dL (60-99); HDL Cholesterol 36 mg/dL (>40); LDL Cholesterol Calculated 119 mg/dL (<100); Potassium 3.8 mmol/L (3.3-5.1); Sodium 138 mmol/L (135-145); Triglycerides 140 mg/dL (<150)
[2024-01-18 10:02] LABS: TSH reflex Free T4 1.01 uIU/mL (0.32-4.0); Vitamin D 25-OH Total 38.4 ng/mL (>30)
[2024-01-18 10:08] LABS: Folate 12.3 ng/mL (> or = 4.0); Vitamin B12 533 pg/mL (200-900)
[2024-01-26 06:18] LABS: Vitamin B1 12 nmol/L (8-30)
== END 2024-01-18 08:21 | disposition home or self-care (01) ==
LOC: HO.LAB 08:20
PROVIDERS: Nurse Practitioner Family
DX: Z13.0 Encounter for screening for diseases of the blood and blood-forming organs and certain disorders involving the immune mechanism (principal); L65.9 Nonscarring hair loss, unspecified; Z13.29 Encounter for screening for other suspected endocrine disorder; Z13.21 Encounter for screening for nutritional disorder; Z13.220 Encounter for screening for lipoid disorders
CPT/HCPCS: 36415; 80053; 80061; 82306; 82607; 82746; 84425; 84443; 85025

== ENCOUNTER 2024-02-14 15:06 | Outpatient (AMB) | payer OTHER, SELFPAY ==
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
[2024-02-14 15:16] VITALS: BP 110/78; PULSE 96; O2SAT 98; BMI 35.7
== END 2024-02-14 16:01 | disposition home or self-care (01) ==
PROVIDERS: PCP Physician Assistant; Visit Provider Physician Assistant
DX: J45.30 Mild persistent asthma, uncomplicated (principal); F41.9 Anxiety disorder, unspecified; E66.812 Obesity, class 2; Z68.35 Body mass index [BMI] 35.0-35.9, adult; F90.0 Attention-deficit hyperactivity disorder, predominantly inattentive type; Z13.1 Encounter for screening for diabetes mellitus; R73.09 Other abnormal glucose

== ENCOUNTER → 2024-02-14 15:06 | Outpatient (BNVA) | payer OTHER, SELFPAY | PROVIDERS: Visit Provider Physician Assistant | DX: J45.30 Mild persistent asthma, uncomplicated (principal); F41.9 Anxiety disorder, unspecified; F90.0 Attention-deficit hyperactivity disorder, predominantly inattentive type; R73.09 Other abnormal glucose; E66.812 Obesity, class 2; Z68.35 Body mass index [BMI] 35.0-35.9, adult | CPT/HCPCS: 90471; 96127 ==

== ENCOUNTER 2025-02-20 15:48 | Outpatient (AMB) | payer OTHER, SELFPAY ==
--- NOTE | 2025-02-20 16:02 | A.OFFPC_ITS ---
Vital Signs 02/20/25 16:03 Height 5 ft 7 in Weight 238 lb BMI 37.3 BP 116/76 Blood Pressure Location Lt brachial Position Sitting Pulse 105 H Pulse Source Pulse Oximeter Pulse Oximetry (%) 98 Oxygen Delivery Method Room Air Intake Visit Reasons: annual exam Genetic Coordinator Required: No Accompanied by: Self / Same As Patient Allergies seafood Allergy (Intermediate, Verified 02/20/25 16:20) Hives Medication List - Last Reconciled 02/20/25 by Aníbal Owen PA-C albuterol sulfate 90 mcg/actuation 1 inh inhalation QID PRN 30 days beclomethasone dipropionate 40 mcg/actuation (Qvar RediHaler) 1 inh inhalation BID 30 days fluticasone propionate 44 mcg/actuation 2 puffs inhalation BID 30 days levonorgestrel (Liletta) intrauterine Tobacco use date assessed: 02/20/25 Dental Screening Dental Screen Date: 02/20/25 Did you have a dental visit in the last 12 months?: Yes Did you have a dental problem in the last 6 months where you did not have access to dental care?: No Was dental information given to patient?: Patient has dentist HPI annual exam HPI Details Patient is a 34-year-old female here today ofor a . Patient has a past medical history significant for obesity, ADHD, anxiety, asthma.. Concerns--> The patient reports a few episodes of a shooting, hot sensation in her left leg, which she describes as an uncomfortable warm feeling, similar to after a run but without pain or jitters. These episodes do not have a consistent trigger but are a new concern. She also reports that after physical activity like cleaning her house, her back feels weak, as if it is going to give out, though she has never fallen. Also she has experiences intermittent episodes of a head davidson and dizziness, lasting for a second, when she stands up from a bent-over position, such as when picking up items from the floor. It makes her feel like she is going to faint, but the sensation resolves after standing still. She has not identified a consistent pattern for these episodes. . Asthma: She reports she has not had to use her maintenance inhaler inhaler in quite some time. She feels her asthma is well controlled. .. Class 2 obesity: Patient does understand her BMI is over 35. She does understand she needs to be more physically active .. ADHD: Has had ADHD since childhood. She has not been treated for ADHD though has been able to manage on her own. 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 . INFERTILITY MEDICAL ASSISTANT: does see a INFERTILITY MEDICAL ASSISTANT at [facility] Vaccines: Up-to-date with COVID, tetanus vaccines. She is interested in getting the flu vaccine [facility] Medical History PTSD (post-traumatic stress disorder) ADHD Anxiety Hemorrhoids Asthma Surgical History No pertinent past surgical history Family History Mother Bipolar 1 disorder Depression Diabetes HTN (hypertension) Hypercholesteremia Father No problems noted. 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 1. Little interest or pleasure in doing things: not at all 2. Feeling down, depressed, or hopeless: several days 3. Trouble falling or staying asleep, or sleeping too much: several days 4. Feeling tired or having little energy: several days 5. Poor appetite or overeating: several days 6. Feeling bad about yourself - or that you are a failure or have let yourself or your family down: several days 7. Trouble concentrating on things, such as reading the newspaper or watching television: several days 8. Moving or speaking so slowly that other people could have noticed. Or the opposite - being so fidgety or restless that you have been moving around a lot more than usual: several days 9. Thoughts that you would be better off or of hurting yourself in some way: not at all Total score: 7 Depression Screening Interpretation: Positive Depression Screening Follow-up: Existing condition Depression Screening Done: Yes 37926 - PHQ-9 Billing: Yes Source: Developed by Drs. Rich Layne, Shelli Reyna, Cesar Coelho and colleagues, with an educational michael from [employer]. Thrive Questionnaire Date Thrive assessed: 02/20/25 I am a: Patient What is your living situation today?: I have a steady place to live Within the past 12 months, did the food you bought not last and you didn't have the money to get more?: Never true Within the past 12 months, did you worry whether your food would run out before you got money to buy more?: Never true Do you have trouble paying for medicines?: No Do you have trouble getting transportation to medical appointments?: No Do you have trouble paying your heating and electricity bill?: No Do you have trouble taking care of your child, family member or friend?: No Do you have trouble with day-to-day activities such as bathing, preparing meals, shopping, managing finances, etc.?: No Are you currently unemployed and looking for a job?: No Are you interested in more education?: Yes Please select the resources that you would like help with: None Currently or been in a relationship where the following occur: No concerns reported THRIVE Score: 0 AUDIT C Alcohol Use Questionnaire (AUDIT-C) 1. How often do you have a drink containing alcohol?: Never 3. How often do you have six or more drinks on one occasion?: Never Total Score: 0 FERNANDO-7 AMB Questionnaire FERNANDO-7 Date FERNANDO - 7 assessed: 02/20/25 Feeling nervous, anxious, or on edge: 1 = Several days Not being able to stop or control worryin = Several days Worrying too much about different things: 1 = Several days Trouble relaxin = Several days Being so restless that it is hard to sit still: 1 = Several days Becoming easily annoyed or irritable: 1 = Several days Feeling afraid as if something awful might happen: 1 = Several days Total FERNANDO-7 score (0-4 normal; 5-9 mild; 10-14 moderate; 15-21 severe): 7 Source: Developed by Shelli Cox Axel, Cesar Coelho and colleagues, with an educational michael from [employer]. FERNANDO-7 Assessment Billing FERNANDO-7 Assessment Tool: FERNANDO-7 Assessment 73016 Review of Systems Const Denies body aches, Denies chills, Denies excessive sweating, Denies fatigue, Denies fever(s) and Denies headache(s) Eyes Denies blurry vision ENT Denies dysphagia, Denies vertigo, Denies dizziness, Denies headache(s), Denies hearing loss and Denies tinnitus Card Denies chest pain, Denies chest pain with activity, Denies syncope, Denies irregular heart rhythm and Denies dyspnea Resp Denies chest congestion, Denies cough, Denies hemoptysis, Denies dyspnea and Denies wheezing GI Denies abdominal pain, Denies melena, Denies hematochezia, Denies coffee ground emesis, Denies dysphagia, Denies diarrhea, Denies nausea and Denies vomiting Denies urinary frequency, Denies dysuria, Denies urinary hesitancy and Denies urinary urgency Musc Denies arthralgias, Denies limited range of motion, Denies muscle cramps and Denies muscle weakness Skin/Breast Denies rash and Denies skin ulcer Neuro Denies Abnormal speech present, Denies confusion, Denies vertigo, Denies dizziness, Denies syncope, Denies headache(s), Denies memory loss and Denies seizure-like activity Psych Denies anxiety, Denies confusion, Denies depression, Denies memory loss, Denies panic attacks and Denies paranoia Endo Denies excessive sweating, Denies fatigue, Denies flushing, Denies polydipsia and Denies polyuria Aller/Immun Denies wheezing Physical exam (Primary Care) Vital Signs: Last Vital Signs Pulse 105 H 02/20/25 16:03 BP 116/76 02/20/25 16:03 Pulse Ox 98 02/20/25 16:03 Oxygen Delivery Method Room Air 02/20/25 16:03 BMI result Body Mass Index 37.3 BMI Assessment/Plan discussion: High BMI High, discussed plan: lifestyle, weight reduction, dietary and physical activity Tobacco/Smoking Status: Tobacco use Status Tobacco use date assessed 02/20/25 02/20/25 16:10 Patient Tobacco Use Status Never used Tobacco 02/20/25 16:24 e-Cigarette/Vaping Use Never Used 02/20/25 16:24 PHQ-9: PHQ-9 Score PHQ-9: Total score 7 02/20/25 16:23 Depression Screening Interpretation: Positive Depression Screening Follow-up: Existing condition Thrive Assessment: Date of Thrive Assessment Date Thrive assessed 02/20/25 02/20/25 16:10 Currently or been in a relationship where the following occur: No concerns reported Const Other: Obese General: cooperative, comfortable, no acute distress, alert and awake; No confusion Orientation/consciousness: oriented to person, oriented to place, patient oriented x3 and No confusion HENMT Head: Yes normocephalic Ears: external ears normal and TM's normal bilaterally Face and sinus: No sinus tenderness Mouth: Normal oral and palatal mucosa present and tongue normal Teeth and gingiva: dentition normal and gingiva normal Throat: Yes posterior oropharynx normal, Yes tonsils normal and Yes uvula midline Eyes Conjunctivae: conjunctivae normal Sclerae: sclerae normal Pupils: Equal, round and reactive pupils present EOM: EOMs intact bilaterally Direct Ophthalmoscopy: No no photophobia Neck Neck: Yes no lymphadenopathy, No tender and Yes no JVD Thyroid: Thyroid normal Carotids: no bruits Chest Chest palpation & inspection: no tenderness Resp Effort & Inspection: normal respiratory effort, no audible wheezes, not labored and no stridor Auscultation: no crackles, no rales, no rhonchi and no wheezes Cardio Jugular venous distension: no JVD Rate: regular rate, not bradycardic and not tachycardic Rhythm: regular rhythm Bruits: no carotid bruits Peripheral pulses: Peripheral pulses 2+ throughout GI Inspection: Yes normal to inspection, No abdominal wall ecchymosis and No visible herniation Palpation (GI): Soft to palpation, nontender, no guarding, not rigid and No hepatosplenomegaly present Auscultation: normoactive bowel sounds General: Yes no CVA tenderness Back/Spine/Pelvis Back: no CVA tenderness and No back tenderness Cervical Spine: cervical ROM normal Thoracic/Lumbar Spine: thoracic and lumbar spine normal to inspection, straight leg raise negative bilaterally, No thoraco-lumbar ROM limited and No lumbar spinal tenderness Skin Lesions: no lesions Rashes: no rashes Wounds: no wounds Neuro General: oriented to person, oriented to place, patient oriented x3, CN's II-XI intact bilaterally and No confusion Cranial nerves: Yes Equal, round and reactive pupils present and Yes Normal accommodation reflex present Cognition (Neuro): normal cognition Speech: No Abnormal speech present Gait exam (Neuro): Normal gait present Motor exam (neuro): 5/5 motor strength present throughout Extrem Right upper extremity: full ROM; no cyanosis Left upper extremity: full ROM; no cyanosis Right lower extremity: no edema Left lower extremity: no edema Psych Appearance: grossly normal Mental Status: mental status grossly normal Affect: normal affect Attitude: cooperative Thought process: Normal thought process present Office Procedures Flu Questionnaire Does the patient have a severe egg allergy?: No Does the patient have severe life threatening allergies?: No Does the patient have a fever or illness today?: No Has the patient ever had Guillain-[place] Syndrome?: No Has the patient ever had any past reaction to a flu shot?: No Immunizations Fluarix [id number] (PF) 45 mcg (15 mcg x 3)/0.5 mL IM syringe Performing Provider: Aníbal Owen PA-C [facility] Administered by: DILLAN Chavez on 02/20/25 16:51 Dose Route Admin Location Dispensed Lot Number Expiration Date [facility] Nurse Auditor 0.5 mL IM Left Deltoid 0.5 mL [id number] 10/21/25 [id number] [employer] VIS Given Date VIS Provided VIS Publication Date 02/20/25 Single Vaccine 24 Eligibility Eligibility Date Funding Source Not [facility] Eligible 02/20/25 Private Coding Level of Care Code Est Pt Prev Care 18-39y(81660) Diagnoses Annual physical exam Z00.00 Lumbar radiculopathy M54.16 Benign paroxysmal positional vertigo, unspecified laterality H81.10 Laterality: unspecified laterality Hair loss L65.9 Impaired glucose metabolism R73.09 Class 2 obesity E66.812 Anxiety F41.9 Attention deficit hyperactivity disorder (ADHD), predominantly inattentive type F90.0 Attention deficit-hyperactivity disorder type: predominantly inattentive Additional Codes PHQ-9 - 92320 - PHQ-9 Billing: Yes ([id number]) FERNANDO-7 Assessment Billing - FERNANDO-7 Assessment Tool: FERNANDO-7 Assessment 42485 ([id number]) Assessment & Plan Assessment & Plan (1) Annual physical exam: Code(s): Z00.00 - Encounter for general adult medical examination without abnormal findings Category: Medical Plan: As per HPI (2) Lumbar radiculopathy: Code(s): M54.16 - Radiculopathy, lumbar region Category: Medical Plan: For the patient's left leg symptoms, the primary differential is lumbar radiculopathy. A lumbar spine X-ray will be ordered to assess for degenerative changes, such as arthritis or disc height loss. Physical therapy was recommended as an option to help with core strengthening and back stabilization, which may alleviate her symptoms and prevent future issues. The patient was also advised to consider more supportive footwear for her standing job. (3) BPPV (benign paroxysmal positional vertigo): Code(s): H81.10 - Benign paroxysmal vertigo, unspecified ear Category: Medical Qualifiers: Laterality: unspecified laterality Qualified Code(s): H81.10 - Benign paroxysmal vertigo, unspecified ear Plan: The patient's dizziness upon standing is consistent with benign positional vertigo, with dehydration as a potential contributing factor. Her annual lab work will include a check of kidney function to further evaluate. (4) Hair loss: Code(s): L65.9 - Nonscarring hair loss, unspecified Category: Medical Plan: To investigate the cause of her hair thinning, labs will be ordered to assess her thyroid function, testosterone level, and for potential vitamin deficiencies. (5) Impaired glucose metabolism: Code(s): R73.09 - Other abnormal glucose Category: Medical Plan: Patient has a history of slightly elevated fasting blood sugar. Will check an A1c. Advised on weight reduction low sugar/ carbohydrate diet. (6) Class 2 obesity: Code(s): E66.812 - Obesity, class 2 Category: Medical Plan: Patient does understand her BMI is over 35 and will work on being more physically active and adapting to better eating habits to reduce her weight (7) Anxiety: Code(s): F41.9 - Anxiety disorder, unspecified Category: Medical Plan: As per HPI, her fernando 7 score positive for anxiety. She is interested in cognitive behavioral therapy as she seems to be suffering with PTSD from a traumatic experience. (8) ADHD: Code(s): F90.9 - Attention-deficit hyperactivity disorder, unspecified type Category: Medical Qualifiers: Attention deficit-hyperactivity disorder type: predominantly inattentive Qualified Code(s): F90.0 - Attention-deficit hyperactivity disorder, predominantly inattentive type Plan: As per HPI Orders: Orders TSH reflex Free T4 Today L65.9 - Nonscarring hair loss, unspecified Comprehensive [place]. Panel Fast Today R73.09 - Other abnormal glucose Vitamin E Today L65.9 - Nonscarring hair loss, unspecified PT Evaluation and Treatment Today M54.16 - Radiculopathy, lumbar region Influenza [id number] Immunization Today Z23 - Encounter for immunization XR lumbar spine 4V min Today M54.16 - Radiculopathy, lumbar region Hemoglobin A1c Today R73.09 - Other abnormal glucose Complete Blood Count no Diff Today R73.09 - Other abnormal glucose Testosterone, Free/Total Today L65.9 - Nonscarring hair loss, unspecified Vitamin D 25-OH Total Today L65.9 - Nonscarring hair loss, unspecified
[2025-02-20 16:03] VITALS: BP 116/76; PULSE 105; O2SAT 98; BMI 37.3
--- OUTSIDE RECORDS SUMMARY | 2025-02-20 18:11 | XMS_ITS | Encounter Summary ---
Author Organization [facility] Address [address] [place], [place] [id number] Phone Care Team Providers Care Miniature Model Maker Name Role Phone Emi Dean MD Primary Care Provider + Encounter Details Date Type Department Care Team (Late st Contact Info) Description 03/12/2022 Procedure Pass [facility], Ct Scan - [address] [address] Social History Tobacco Use Types Packs/Day Years Used Date Smoking Tobacco: Never Smokeless Tobacco: Never Alcohol Use Standard Drinks/Week Comments Yes 0 (1 standard drink = 0.6 oz pur e alcohol) social Comments Unknown Sex and Gender Information Value Date Recorded Sex Assigned at Female 03/12/2022 3:52 PM EST Legal Sex Female 8:58 PM EDT Gender Identity Female 03/12/2022 3:52 PM EST Sexual Orientation Straight 03/12/2022 3: 52 PM EST documented as of this encounter Functional Status * Calculated C-SSRS Risk Score (Lifetime/Recent) Answer Date of Assessment Author No Risk Indicated 03/12/2022 3:52 PM EST Sandi Guido, RN * [place] Suicide Severity Rating Scale (Screener/Recent Self-Report) Question Answer Date of Assessment Author 1. Wish to be (Past 1 Month) No 022 3:52 PM Sandi Blancas, RN 2. Non-Specific Active Suici filiberto Thoughts (Past 1 Month) No 03/12/2022 3:52 PM Sandi Blancas, RN 6. Suicidal Behavior (Lifetime) No 3:52 PM Sandi Blancas, RN documented as of this encounter Plan of Treatment Not on file documented as of this encounter Visit Diagnoses Not on filedocumented in this encounter Care Teams Miniature Model Maker Relationship Specialty Start Date End Date Emi Dean MD [address] [place] [id number] [email or web address] PCP - General Family Medicine 08/21/17 documented as of this encounter Additional Source Comments The information contained in this document represents components of the legal health record. It is not the complete legal health record.[facility]
--- OUTSIDE RECORDS SUMMARY | 2025-02-20 18:11 | XMS_ITS | Encounter Summary ---
Author Organization [facility] Address [address] [place], [place] [phone] Phone Care Team Providers Care Hydrogeology Professor Name Role Phone Emi Dean MD Primary Care Provider + Encounter Details Date Type Department Care Team (Late st Contact Info) Description 03/12/2022 Procedure Pass [facility], Ct Scan - [address] [address] Social History Tobacco Use Types Packs/Day Years [...] 3:52 PM EST Sandi Guido, RN * [place] Suicide Severity Rating Scale (Screener/Recent Self-Report) Question [...] on filedocumented in this encounter Care Teams Hydrogeology Professor Relationship Specialty Start Date End Date Emi Dean MD [address] [place] [id number] [email or web address] PCP - General Family Medicine 08/21/17 documented as of this encounter Additional Source Comments The information contained in this document represents components of the legal health record. It is not the complete legal health record.[facility]
--- OUTSIDE RECORDS SUMMARY | 2025-02-20 18:11 | XMS_ITS | Encounter Summary ---
Author Organization [facility] Address [address] [place] [address] Phone Care Team Providers Care Pattern And Chain Maker Name Role Phone Perla Matthews PULMONARY FELLOW Unavailable [phone] Radha Guzman PULMONARY FELLOW Unavailable [phone] Rukhsana Varela MD Unavailable [phone] Tracie Crisostomo MD Unavailable [phone] Scott Guzman MD Unavailable [phone] Emi Dean MD Primary Care Provider + Emi Dean MD Unavailable [phone] Encounter Details Date Type Department Care Team (Late st Contact Info) Description 06/18/2019 Ancillary Orders [facility], X-Ray - [address] [address] Lyla [place] PA [address] [place] [address] [email or web address] Back pain, unspecified back location, unspecified back pain laterality, unspecified chronicity; Shortness of breath; Pain in rib Social History Tobacco Use Types Packs/Day Years Used Date Smoking Tobacco: Never Assessed Comments Unknown Sex and Gender Information Value Date Recorded Sex Assigned at Female 03/12/2022 3:52 PM EST Legal Sex Female 8:58 PM EDT Gender Identity Female 03/12/2022 3:52 PM EST Sexual Orientation Straight 03/12/2022 3: 52 PM EST documented as of this encounter Plan of Treatment Not on file documented as of this encounter Results * XR RIBS 4 OR MORE VIEWS WITH PA CHEST (BILATERAL) (06/18/2019 6:33 PM EST) Anatomical Region Laterality Modality Chest Radiographic Promise ging 06/18/2019 7:07 PM EST Impressions 06/18/2019 7:11 PM EST No acute chest disease. POS - [id number] Narrative 06/18/2019 7:11 PM EST HISTORY: As above. COMPARISON: Chest x-ray 08/21/2017. PA CHEST/BILATERAL RIB RADIOGRAPH FINDINGS: Views: 10. Heart and Mediastinum: Normal. Lungs: Lungs are clear. Bones: No acute fracture. Soft Tissues: No acute findings. Procedure Note Afshin Lino MD - 06/18/2019 HISTORY: As above. COMPARISON: Chest x-ray 08/21/2017. PA CHEST/BILATERAL RIB RADIOGRAPH FINDINGS: Views: 10. Heart and Mediastinum: Normal. Lungs: Lungs are clear. Bones: No acute fracture. Soft Tissues: No acute findings. IMPRESSION: No acute chest disease. POS - [id number] Lyla [place] PA IMG XR CHEST Final Result * XR Thoracolumbar Spine 2 Views (06/18/2019 6:22 PM EST) Anatomical Region Laterality Modality T-spine Radiographic Promise ging 06/18/2019 6:27 PM EST Impressions 06/18/2019 6:32 PM EST 1. No acute fracture. Further imaging evaluation should be based on clinical concern. 2. Mild L3-4 and L4-5 disc disease. POS - [id number] Narrative 06/18/2019 6:32 PM EST HISTORY: As above. COMPARISON: None. THORACOLUMBAR SPINE RADIOGRAPH FINDINGS: Four views obtained. Normal lumbar lordosis. No acute fracture or malalignment. Mild L3-4 and L4-5 disc space narrowing. No compression fractures. No bone lesions. Soft tissues are normal. Procedure Note Afshin Lino MD - 06/18/2019 HISTORY: As above. COMPARISON: None. THORACOLUMBAR SPINE RADIOGRAPH FINDINGS: Four views obtained. Normal lumbar lordosis. No acute fracture ormalalignment. Mild L3-4 and L4-5 disc space narrowing. No compressionfractures. No bone lesions. Soft tissues are normal. IMPRESSION: 1. No acute fracture. Further imaging evaluation should be based onclinical concern. 2. Mild L3-4 and L4-5 disc disease. POS - [id number] Lyla SHERIDAN IMG XR SPINE Final Result documented in this encounter Visit Diagnoses Diagnosis Back pain, unspecified back location, unspecified back pain laterality, unspecified chronicity Shortness of breath Pain in rib Unspecified chest pain Back pain, unspecified back location, unspecified back pain laterality, unspecified chronicity Shortness of breath Pain in rib Unspecified chest pain Back pain, unspecified back location, unspecified back pain laterality, unspecified chronicity documented in this encounter Additional Health Concerns Infection Onset Date Last Indicated Resolved Time CoV-Risk 10/02/2019 10/03/2019 10/16/2019 1:23 AM EDT documented as of this encounter Care Teams Pattern And Chain Maker Relationship Specialty Start Date End Date Emi Dean MD [address] [place] [address] [email or web address] PCP - General Family Medicine 08/21/17 Perla Matthews NP [address] [place] [address] Historical LMR Provider 02/09/17 2 Radha Guzman NP [address] [place] [address] [email or web address] Historical LMR Provider 02/09/17 05/01/21 Rukhsana Varela MD [address] [place] [address], [address] [place] [address] [email or web address] Historical LMR Provider 02/09/17 05/01/21 Tracie Crisostomo MD [address] [place] [address], [address] [place] [address] [email or web address] Historical LMR Provider 02/09/17 05/01/21 cSott Guzman MD [address] [place] [address] Historical LMR Provider 02/09/17 2 Emi Dean MD [address] [place] [address] [email or web address] Insurance Assigned Provider 08/26/17 06/27/21 documented as of this encounter Additional Source Comments The information contained in this document represents components of the legal health record. It is not the complete legal health record.[facility]
--- OUTSIDE RECORDS SUMMARY | 2025-02-20 18:11 | XMS_ITS | Encounter Summary ---
Author Organization [facility] Address [address] [place] [address] Phone Care Team Providers Care Lime Trimmer Name Role Phone Perla Matthews HIGH SCHOOL COMPUTER SCIENCE TEACHER Unavailable [phone] Radha Guzman HIGH SCHOOL COMPUTER SCIENCE TEACHER Unavailable [phone] Rukhsana Varela MD Unavailable [phone] Tracie Crisostomo MD Unavailable [phone] Scott Guzman MD Unavailable [phone] Emi Dean MD Primary Care Provider + Emi Dean MD Unavailable [phone] Encounter Details Date Type Department Care Team (Late st Contact Info) Description 01/18/2018 Ancillary Orders [facility], X-Ray - [address] [place] [address] Maddie Marcial PA-C [address] [place] [address] [email or web address] Social History Tobacco Use Types Packs/Day Years [...] as of this encounter Results * XR ANKLE 3 OR MORE VIEWS (RIGHT) (01/18/2018 6:48 PM EDT) Anatomical Region Laterality Modality Ankle Right Radiographic Promise ging 01/18/2018 10:0 2 PM EDT Impressions 01/18/2018 10:05 PM EDT No fracture detected. POS - [id number] Narrative 01/18/2018 10:05 PM EDT HISTORY: Pain after a fall. COMPARISON: None FINDINGS: 3 views of the right ankle are performed. Mortise and lateral views are slightly obliqued which mildly limits assessment for alignment. No fracture detected. No gross malalignment. Joint spaces are maintained. No destructive bone lesion. No joint effusion apparent. Procedure Note Balwinder Portillo MD - 01/18/2018 HISTORY: Pain after a fall. COMPARISON: None FINDINGS: 3 views of the right ankle are performed. Mortise and lateral views areslightly obliqued which mildly limits assessment for alignment. Nofracture detected. No gross malalignment. Joint spaces are maintained.No destructive bone lesion. No joint effusion apparent. IMPRESSION: No fracture detected. POS - [id number] us Maddie Marcial PA-C IMG XR LOWER EXTREMITY Final Result * XR WRIST 3 OR MORE VIEWS (RIGHT) (01/18/2018 6:47 PM EDT) Anatomical Region Laterality Modality Wrist Right Radiographic Promise ging 01/18/2018 10:0 5 PM EDT Impressions 01/18/2018 10:07 PM EDT No fracture detected. POS - [id number] Narrative 01/18/2018 10:07 PM EDT HISTORY: Pain after fall COMPARISON: Right hand radiographs 10/14/2007 FINDINGS: 5 views of the right wrist are performed. No fracture or dislocation detected. Joint spaces are maintained. No destructive bone lesion or abnormal soft tissue calcifications. Procedure Note Balwinder Portillo MD - 01/18/2018 HISTORY: Pain after fall COMPARISON: Right hand radiographs 10/14/2007 FINDINGS: 5 views of the right wrist are performed. No fracture or dislocationdetected. Joint spaces are maintained. No destructive bone lesion orabnormal soft tissue calcifications. IMPRESSION: No fracture detected. POS - [id number] Maddie Marcial PA-C IMG XR UPPER EXTREMITY Final Result documented in this encounter Visit Diagnoses Diagnosis Pain Generalized pain Pain Generalized pain Pain Generalized pain documented in this encounter Additional Health Concerns Infection Onset Date Last Indicated Resolved Time CoV-Risk 10/02/2019 10/03/2019 10/16/2019 1:23 AM EDT documented as of this encounter Care Teams Lime Trimmer Relationship Specialty Start Date End Date Emi Dean MD [address] [place] [address] [email or web address] PCP - General Family Medicine 08/21/17 Perla Matthews NP [address] [place] [address] [address] [place] [address] Historical LMR Provider 02/09/17 2 Radha Guzman NP [address] [place] [address] [email or web address] Historical LMR Provider 02/09/17 05/01/21 Rukhsana Varela MD [address] [place] [address], 2[address] [place] [address] Historical LMR Provider 02/09/17 05/01/21 Tracie Crisostomo MD [address] [place] [address], [address] [place] [address] [email or web address] Historical LMR Provider 02/09/17 05/01/21 Scott Guzman MD [address] [place] [address] Historical LMR Provider 02/09/17 2 Emi Dean MD [address] [place] [address] [email or web address] Insurance Assigned Provider 08/26/17 06/27/21 documented as of this encounter Additional Source Comments The information contained in this document represents components of the legal health record. It is not the complete legal health record.[facility]
--- OUTSIDE RECORDS SUMMARY | 2025-02-20 18:11 | XMS_ITS | Encounter Summary ---
Author Organization [facility] Address [address] [place] [address] Phone Care Team Providers Care Seam Closer Name Role Phone Perla Matthews RAILROAD CAR REPAIR SUPERVISOR Unavailable [phone] Radha Guzman RAILROAD CAR REPAIR SUPERVISOR Unavailable [phone] Rukhsana Varela MD Unavailable [phone] Tracie Crisostomo MD Unavailable [phone] Scott Guzman MD Unavailable [phone] Emi Dean MD Primary Care Provider + Emi Dean MD Unavailable [phone] Encounter Details Date Type Department Care Team (Late st Contact Info) Description 08/21/2017 Ancillary Orders [facility], X-Ray - [address] [place] [address] Maddie Marcial PA-C [address] [place] [address] [email or web address] Cough Social History Tobacco Use Types Packs/Day Years [...] as of this encounter Results * XR CHEST PA AND LATERAL 2 VIEWS (08/21/2017 12:54 PM EDT) Anatomical Region Laterality Modality Chest Radiographic Promise ging 08/21/2017 12:5 0 PM EDT Impressions 08/21/2017 12:52 PM EDT No acute chest disease. POS - [id number] Narrative 08/21/2017 12:52 PM EDT HISTORY: As above. COMPARISON: 10/04/2016. CHEST RADIOGRAPH FINDINGS: 2 views obtained. Heart and mediastinum are normal. Lungs are clear. Mild increase in lower thoracic curvature convex to the left. No significant scoliosis. No acute soft tissue findings. Procedure Note Afshin Lino MD - 08/21/2017 HISTORY: As above. COMPARISON: 10/04/2016. CHEST RADIOGRAPH FINDINGS: 2 views obtained. Heart and mediastinum are normal. Lungs are clear.Mild increase in lower thoracic curvature convex to the left. Nosignificant scoliosis. No acute soft tissue findings. IMPRESSION: No acute chest disease. POS - [id number] us Maddie Marcial PA-C IMG XR CHEST Final Result documented in this encounter Visit Diagnoses Diagnosis Cough Cough documented in this encounter Additional Health Concerns Infection Onset Date Last Indicated Resolved Time CoV-Risk 10/02/2019 10/03/2019 10/16/2019 1:23 AM EDT documented as of this encounter Care Teams Seam Closer Relationship Specialty Start Date End Date Emi Dean MD [address] [place] [address] PCP - General Family Medicine 08/21/17 Perla Matthews NP [address] [place] [address] Historical LMR Provider 02/09/17 2 Radha Guzman NP [address] [place] [address] [email or web address] Historical LMR Provider 02/09/17 05/01/21 Rukhsana Varela MD [address] [place] [address], [address] [place] [address] [email or web address] Historical LMR Provider 02/09/17 05/01/21 Tracie Crisostomo MD [address] [facility], [address] [place] [address] [email or web address] Historical LMR Provider 02/09/17 05/01/21 Scott Guzman MD [address] [place] [address] Historical LMR Provider 02/09/17 2 Emi Dean MD [address] [place] [address] [email or web address] Insurance Assigned Provider 08/26/17 06/27/21 documented as of this encounter Additional Source Comments The information contained in this document represents components of the legal health record. It is not the complete legal health record.[facility]
--- OUTSIDE RECORDS SUMMARY | 2025-02-20 18:11 | XMS_ITS | Clinical Summary ---
Author Organization [facility] Address [address] [place], [place] [phone] Phone Care Team Providers Care Auction Block Clerk Name Role Phone Emi Dean MD Primary Care Provider + Allergies No known active allergies Medications VIT/IRON FUM/FOLIC AC ( TABLET ORAL) Orally Active albuterol 90 mcg/actuation inhaler Inhale 2 puffs into the lungs every 6 (six) hours as needed for wheezing. Active fluticasone propionate (FLOVENT HFA) 110 mcg/actuation inhaler Inhale 1 puff into the lungs 2 (two) times a day. Active docusate sodium (COLACE) 100 MG capsule Take 100 mg by mouth 2 (two) times a day. Active Active Problems No known active problems Social History Tobacco Use Types Packs/Day Years Used Date Smoking Tobacco: Never Smokeless Tobacco: Never Alcohol Use Standard Drinks/Week Comments Yes 0 (1 standard drink = 0.6 oz pur e alcohol) social Education Answer Date Recorded Are you interested in more education? Not on topher e 08/19/2022 Are you concerned about learning? Not on file 08/19/2022 No 08/19/2022 No 08/19/2022 Digital Access Answer Date Recorded No 09/16/2022 No 09/16/2022 Reliable internet access at home? Not on file 09/16/2022 Device with a working camera? Not on file Comments Unknown Sex and Gender Information Value Date Recorded Sex Assigned at Female 03/12/2022 3:52 PM EST Legal Sex Female 8:58 PM EDT Gender Identity Female 03/12/2022 3:52 PM EST Sexual Orientation Straight 03/12/2022 3: 52 PM EST Last Filed Vital Signs Vital Sign Reading Time Taken Comments Blood Pressure 115/84 03/12/2022 8:12 PM EST Pulse 88 03/12/2022 8:12 PM EST Temperature 37.1 C (98.8 F) 03/12/2022 3:51 PM EST Respiratory Rate 16 03/12/2022 8:12 PM EST Oxygen Saturation 99% 03/12/2022 8:12 PM EST Inhaled Oxygen Concentration - - Weight 108.9 kg (240 lb) 03/12/2022 3:51 PM EST Height 172.7 cm (5' 8 ) 03/12/2022 3:51 PM EST Body Mass Index 36.49 03/12/2022 3:51 PM EST Plan of Treatment Health Maintenance Due Date Last Done Comments DEPRESSION SCREENING 2004 HIV ONE-TIME SCREENING (18-65 YEARS) 2010 PAP SMEAR 2013 INFLUENZA VACCINE (#1) 2024 3, 03/31/2010, 03/31/2009 COVID-19 VACCINE ( season) 2024 Adult Td,Tdap Booster 06/03/2030 06/03/2020 , 04/21/2015, 11/29/2005 HIB VACCINES Completed 06/03/1995, 03/24, 1992, Additional history exists MENINGOCOCCAL VACCINES (ACWY) Aged Out 02/15/2013, 01/16/2007 No longer eligibl e based on patient's age to complete this topic HEPATITIS C SCREENING Completed 01/24/2020 SMOKING STATUS SCREENING (Once After 26 Yrs) Completed 03/12/2022 HEPATITIS A VACCINES Aged Out No long er eligible based on patient's age to complete this topic MENINGOCOCCAL VACCINES (B) Aged Out N o longer eligible based on patient's age to complete this topic PNEUMOCOCCAL VACCINES (0-49 years) Aged Out No longer eligible based on patient's age to complete this topic Medical Devices Not on file Insurance [facility] [employer] [facility] [employer] Care Teams Auction Block Clerk Relationship Specialty Start Date End Date Emi Dean MD [address] [place] [address] [email or web address] PCP - General Family Medicine 08/21/17 Additional Source Comments The information contained in this document represents components of the legal health record. It is not the complete legal health record.[facility]
--- OUTSIDE RECORDS SUMMARY | 2025-02-20 18:11 | XMS_ITS | Encounter Summary ---
Author Organization [facility] Address [address] [address] Phone Care Team Providers Care Slope Tender Name Role Phone Perla Matthews ELECTRICIAN RADIO Unavailable [phone] Radha Guzman ELECTRICIAN RADIO Unavailable [phone] Rukhsana Varela MD Unavailable [phone] Tracie Crisostomo MD Unavailable [phone] Scott Guzman MD Unavailable [phone] Emi Dean MD Primary Care Provider + Emi Dean MD Unavailable [phone] Encounter Details Date Type Department Care Team (Late st Contact Info) Description 10/02/2019 Transcribe Orders Virtual Department [address] [place] [address] Horace Pineda PA [address] [place] [address] [email or web address] Fever, unspecified fever cause (Primary Dx); Cough Social History Tobacco Use Types Packs/Day [...] documented as of this encounter Results * COVID-19 PCR Order (10/03/2019 10:42 AM EDT) Specimen Source NASOPHARYNGEAL SWAB (ELECTRICIAN RADIO) [facility] COVID-19 Comment EXPOSURE TO + CVOID PERSON [facility] COVID Testing Status Sent to [facility] Other 10/03/2019 10:4 2 AM EDT 10/03/2019 11:36 AM EDT us Horace SHERIDAN BODY FLUIDS AND STOOLS ORDERABLE S Final Result [facility] [address] [place] [address] documented in this encounter Visit Diagnoses Diagnosis Fever, unspecified fever cause- Primary Cough documented in this encounter Additional Health Concerns Infection Onset Date Last Indicated Resolved Time CoV-Risk 10/02/2019 10/03/2019 10/16/2019 1:23 AM EDT documented as of this encounter Care Teams Slope Tender Relationship Specialty Start Date End Date Emi Dean MD [address] [place] [address] [email or web address] PCP - General Family Medicine 08/21/17 Perla Matthews NP [address] [place] [address] Historical LMR Provider 02/09/17 2 Radha Guzman NP [address] [place] [address] [email or web address] Historical LMR Provider 02/09/17 05/01/21 Rukhsana Varela MD [address] [place] [address], [address] [place] [address] [email or web address] Historical LMR Provider 02/09/17 05/01/21 Tracie Crisostomo MD [address] [place] [address] [email or web address] Historical LMR Provider 02/09/17 05/01/21 Scott Guzman MD [address] [place] [address] Historical LMR Provider 02/09/17 2 Emi Dean MD [address] [place] [address] [email or web address] Insurance Assigned Provider 08/26/17 06/27/21 documented as of this encounter Additional Source Comments The information contained in this document represents components of the legal health record. It is not the complete legal health record.[facility]
--- OUTSIDE RECORDS SUMMARY | 2025-02-20 18:11 | XMS_ITS | Encounter Summary ---
Author Organization [facility] Address [address] [place] [address] Phone Care Team Providers Care Collator Hand Name Role Phone Perla Matthews TUMBLER MACHINE OPERATOR Unavailable [phone] Radha Guzman TUMBLER MACHINE OPERATOR Unavailable [phone] Rukhsana Varela MD Unavailable [phone] Tracie Crisostomo MD Unavailable [phone] Scott Guzman MD Unavailable [phone] Emi Dean MD Primary Care Provider + Emi Dean MD Unavailable [phone] Encounter Details Date Type Department Care Team (Late st Contact Info) Description 06/18/2019 Ancillary Orders [facility], X-Ray - [address] [address] Lyla [place] PA [address] [place] [id number] [email or web address] Shortness of breath Social History Tobacco Use Types Packs/Day Years [...] documented as of this encounter Visit Diagnoses Diagnosis Shortness of breath documented in this encounter Additional Health Concerns Infection Onset Date Last Indicated Resolved Time CoV-Risk 10/02/2019 10/03/2019 10/16/2019 1:23 AM EDT documented as of this encounter Care Teams Collator Hand Relationship Specialty Start Date End Date Emi Dean MD [address] [place] [address] PCP - General Family Medicine 08/21/17 Perla Matthews, REID [address] [place] [address] Historical LMR Provider 02/09/17 2 Radha Guzman NP [address] [place] [address] [email or web address] Historical LMR Provider 02/09/17 05/01/21 Rukhsana Varela MD [address] [place] [address], [address] [place] [address] [email or web address] Historical LMR Provider 02/09/17 05/01/21 Tracie Crisostomo MD [address] [place] [address] [address] [place] [address] Historical LMR Provider 02/09/17 05/01/21 Scott Guzman MD [address] [place] [address] Historical LMR Provider 02/09/17 2 Emi Dean MD [address] [place] [address] [email or web address] Insurance Assigned Provider 08/26/17 06/27/21 documented as of this encounter Additional Source Comments The information contained in this document represents components of the legal health record. It is not the complete legal health record.[facility]
== END 2025-02-20 16:58 | disposition home or self-care (01) ==
LOC: HO.HMCH 15:48
PROVIDERS: PCP Physician Assistant; Visit Provider Physician Assistant
DX: Z00.00 Encounter for general adult medical examination without abnormal findings (principal); M54.16 Radiculopathy, lumbar region; E66.812 Obesity, class 2; Z68.37 Body mass index [BMI] 37.0-37.9, adult; L65.9 Nonscarring hair loss, unspecified; R73.09 Other abnormal glucose; F41.9 Anxiety disorder, unspecified; F90.0 Attention-deficit hyperactivity disorder, predominantly inattentive type; Z23 Encounter for immunization; H81.10 Benign paroxysmal vertigo, unspecified ear

== ENCOUNTER → 2025-02-20 15:48 | Outpatient (BNVA) | payer OTHER, SELFPAY | PROVIDERS: PCP Physician Assistant; Visit Provider Physician Assistant | DX: Z00.00 Encounter for general adult medical examination without abnormal findings (principal); J45.909 Unspecified asthma, uncomplicated; E66.812 Obesity, class 2; M54.16 Radiculopathy, lumbar region; H81.10 Benign paroxysmal vertigo, unspecified ear; L65.9 Nonscarring hair loss, unspecified; R73.09 Other abnormal glucose; F41.9 Anxiety disorder, unspecified; F90.0 Attention-deficit hyperactivity disorder, predominantly inattentive type; Z23 Encounter for immunization; Z68.37 Body mass index [BMI] 37.0-37.9, adult | CPT/HCPCS: 90471; 90656; 96127 ==